=== PATIENT | male | born 1995 | race Caucasian/White ===

== ENCOUNTER 2017-12-04 10:30 | Inpatient (IN) | payer BC ==
[2017-12-04] MEDS: ONDANSETRON 4 MG INJ IV (11:23)
[2017-12-04] MEDS: SOD CHLORIDE 0.9% 1,000 ML IV ×2 (11:23→14:59)
[2017-12-04] MEDS: KETOROLAC 30 MG INJ IV (11:24)
[2017-12-04 11:38] LABS: ADD MAN DIFF? NO
[2017-12-04 11:41] LABS: BASOPHILS % 0.5 % (0.0-2.0); EOSINOPHILS # 0.1 10^3/ul (0.0-0.5); EOSINOPHILS % 2.2 % (0.0-7.0); HEMATOCRIT 41.2 % (42.0-52.0); HEMOGLOBIN 13.6 g/dl (14.0-18.0); LYMPHOCYTES # 2.7 10^3/ul (0.8-2.9); LYMPHOCYTES % 41.9 % (15.0-51.0); MEAN CORPUSCULAR HEMOGLOBIN 28.5 pg (29.0-33.0); MEAN CORPUSCULAR VOLUME 86.2 fl (82.0-101.0); MEAN PLATELET VOLUME 10.1 fl (7.4-10.4); MONOCYTE # 0.4 10^3/ul (0.3-0.9); MONOCYTES % 5.9 % (0.0-11.0); NEUTROPHIL # 3.2 10^3/ul (1.6-7.5); NEUTROPHILS % 49.2 % (39.0-77.0); PLATELET COUNT 256 10^3/UL (140-415); RED BLOOD COUNT 4.78 10^6/ul (4.70-6.10)
[2017-12-04 11:41] LABS: WHITE BLOOD COUNT 6.4 10^3/ul (4.8-10.8)
[2017-12-04 11:47] LABS: ADD UMIC NO; UR ASCORBIC ACID NEGATIVE (NEGATIVE); UR BILIRUBIN (Dip) NEGATIVE (NEGATIVE); UR BLOOD (Dip) NEGATIVE (NEGATIVE); UR CLARITY CLEAR (CLEAR); UR COLOR YELLOW (YELLOW); UR GLUCOSE (Dip) NEGATIVE (NEGATIVE); UR KETONES (Dip) NEGATIVE (NEGATIVE); UR LEUKOCYTE ESTERASE (Dip) NEGATIVE Leu/ul (NEGATIVE); UR NITRITE (Dip) NEGATIVE (NEGATIVE); UR SPECIFIC GRAVITY (Dip) 1.018 (1.003-1.030); UR TOTAL PROTEIN (Dip) NEGATIVE (NEGATIVE); UR UROBILINOGEN (Dip) NEGATIVE (NEGATIVE)
[2017-12-04 12:02] LABS: ALANINE AMINOTRANSFERASE 26 IU/L (13-69); ALBUMIN 5.1 g/dl (3.3-4.9); ALBUMIN/GLOBULIN RATIO 1.18; ALKALINE PHOSPHATASE 45 IU/L (42-121); ANION GAP 21 (8-16); ASPARTATE AMINO TRANSFERASE 25 IU/L (15-46); BILIRUBIN,INDIRECT 0.6 mg/dl (0-1.1); BILIRUBIN,TOTAL 0.6 mg/dl (0.2-1.3); BLOOD UREA NITROGEN 18 mg/dl (7-20); CARBON DIOXIDE 29 mmol/L (21-31); CHLORIDE 104 mmol/L (97-110); CREATININE 0.98 mg/dl (0.61-1.24); GLUCOSE 80 mg/dl (70-220); LIPASE 43 U/L (23-300); POTASSIUM 4.2 mmol/L (3.5-5.1); SODIUM 150 mmol/L (135-144); TOTAL PROTEIN 9.4 g/dl (6.1-8.1)
[2017-12-04] MEDS ORDERED: ONDANSETRON 4 MG INJ IV ×2 (13:00→15:00)
[2017-12-04] MEDS ORDERED: ACETAMINOPHEN 325 MG TAB PO ×2 (13:00→15:00)
[2017-12-04] MEDS: PIPER-TAZO 3.375 GM IV (PMX) 100 ML IVPB (13:27)
[2017-12-04] MEDS: DOCUSATE SODIUM 100 MG CAP PO (14:59)
[2017-12-04] MEDS ORDERED: HYDROCODONE/APAP (5/325) TAB PO (15:00)
[2017-12-04] MEDS ORDERED: morphine 2 MG INJ IV (15:00)
[2017-12-04] MEDS: metroNIDAZOLE 500 MG/NS (PMX) 100 ML IVPB (15:50)
[2017-12-04] MEDS: CIPROFLOXACIN 400MG/D5W 200 ML IVPB (17:47)
[2017-12-04] MEDS ORDERED: CIPROFLOXACIN 200 MG/D5W IVPB 100 ML IVPB (21:00)
[2017-12-04] MEDS: FAMOTIDINE 20 MG TAB PO (21:22)
[2017-12-05] MEDS: SOD CHLORIDE 0.9% 1,000 ML IV ×2 (00:31→10:31)
[2017-12-05] MEDS: CIPROFLOXACIN 400MG/D5W 200 ML IVPB ×2 (01:04→09:32)
[2017-12-05] MEDS: DOCUSATE SODIUM 100 MG CAP PO ×2 (03:00→14:51)
[2017-12-05] MEDS: metroNIDAZOLE 500 MG/NS (PMX) 100 ML IVPB ×3 (05:00→14:50)
[2017-12-05 05:12] LABS: ADD MAN DIFF? NO
[2017-12-05 05:22] LABS: WHITE BLOOD COUNT 7.1 10^3/ul (4.8-10.8)
[2017-12-05 05:22] LABS: BASOPHILS % 0.3 % (0.0-2.0); EOSINOPHILS # 0.2 10^3/ul (0.0-0.5); HEMATOCRIT 36.5 % (42.0-52.0); LYMPHOCYTES # 3.1 10^3/ul (0.8-2.9); LYMPHOCYTES % 43.9 % (15.0-51.0); MEAN CORPUSCULAR HEMOGLOBIN 28.6 pg (29.0-33.0); MEAN CORPUSCULAR HGB CONC 32.9 g/dl (32.0-37.0); MEAN CORPUSCULAR VOLUME 87.1 fl (82.0-101.0); MEAN PLATELET VOLUME 10.3 fl (7.4-10.4); MONOCYTE # 0.6 10^3/ul (0.3-0.9); MONOCYTES % 8.3 % (0.0-11.0); NEUTROPHIL # 3.1 10^3/ul (1.6-7.5); NEUTROPHILS % 44.2 % (39.0-77.0); PLATELET COUNT 239 10^3/UL (140-415); RED BLOOD COUNT 4.19 10^6/ul (4.70-6.10); RED CELL DISTRIBUTION WIDTH 13.1 % (11.5-14.5)
[2017-12-05 06:04] LABS: ANION GAP 16 (8-16); BLOOD UREA NITROGEN 16 mg/dl (7-20); CALCIUM 9.3 mg/dl (8.4-10.2); CARBON DIOXIDE 30 mmol/L (21-31); CHLORIDE 107 mmol/L (97-110); CREATININE 1.08 mg/dl (0.61-1.24); GLUCOSE 91 mg/dl (70-220); MAGNESIUM 2.2 mg/dl (1.7-2.5); PHOSPHORUS 4.7 mg/dl (2.5-4.9); POTASSIUM 4.6 mmol/L (3.5-5.1); SODIUM 148 mmol/L (135-144)
[2017-12-05] MEDS: FAMOTIDINE 20 MG TAB PO (09:00)
== END 2017-12-05 17:00 | disposition home or self-care (01) | DRG 395 ==
LOC: FTE 10:30 → PP2 12:37
DX: K35.80 Unspecified acute appendicitis (principal)
CPT/HCPCS: 36415; 74176; 80048; 80053; 81003; 83690; 83735; 84100; 85025; 96374; 96375; 99285-25